=== PATIENT | female | born 1995 | race Two or more races ===

== ENCOUNTER 2016-04-23 00:18 | Emergency (ER) | payer MEDICAID, OTHER ==
[~2016-04-23] VITALS: Ht 162.6 cm; Wt 67.4 kg
[2016-04-23 02:27] LABS: HEMOGLOBIN 13.8 g/dL (11.7-16.4)
[2016-04-23 02:41] LABS: ASPARTATE AMINO TRANSFERASE 14 U/L (15-37); BLOOD UREA NITROGEN 10 mg/dL (7-18)
[2016-04-23 03:38] VITALS: BP 121/61
== END 2016-04-23 03:41 | disposition home or self-care (01) ==
LOC: ED 03:30
DX: O20.0 Threatened abortion (principal); Z3A.08 8 weeks gestation of pregnancy; Z88.6 Allergy status to analgesic agent
CPT/HCPCS: 36415; 76801; 80053; 84702; 84703; 85025; 86901; 99285